=== PATIENT | female | born 2000 | race Caucasian/White ===

== ENCOUNTER 2020-11-28 11:37 | Inpatient (IN) | payer OTHER ==
[2020-11-28] MEDS: LACTATED RINGERS 1,000 ML IV SCH ×2 (12:05→13:00)
[2020-11-28] MEDS ORDERED: TERBUTALINE 1 MG/ML VIAL SQ PRN (12:06)
[2020-11-28] MEDS ORDERED: OXYTOCIN 10 UNIT/ML 1 ML VIAL IM PRN (12:06)
[2020-11-28] MEDS ORDERED: LIDOCAINE 0.5% (PF) 5 MG/ML (50 ML SDV) SQ PRN (12:06)
[2020-11-28] MEDS ORDERED: METHYLERGONOVINE 0.2 MG/ML 1 ML AMP IM PRN (12:06)
[2020-11-28] MEDS ORDERED: CARBOPROST TROMETHAMINE 250 MCG/ML 1 ML AMP IM PRN (12:06)
[2020-11-28] MEDS ORDERED: PENICILLIN G POTASSIUM 5,000,000 UNIT in DEXTROSE 5% IN WATER 100 ML IVPB STA ×2 (12:11)
[2020-11-28 12:42] LABS: Basophils % (A) 0 %; Eosinophils % (A) 0 %; HCT 39.8 % (34.0-46.0); HGB 13.7 gm/dL (11.4-16.0); Lymphocytes # (A) 1.9 k/uL (1.0-4.8); Lymphocytes % (A) 15 %; MCH 32.1 pg (25.0-35.0); MCHC 34.3 g/dL (31.0-37.0); MCV 93.5 fL (80.0-100.0); Mean Platelet Volume 9.5; Monocytes # (A) 0.5 k/uL (0-1.0); Monocytes % (A) 4 %; Neutrophils # (A) 9.8 k/uL (1.3-7.7); Neutrophils % (A) 79 %; Platelet Count 185 k/uL (150-450); RBC 4.26 m/uL (3.80-5.40); RDW 14.4 % (11.5-15.5); WBC 12.4 k/uL (3.8-10.6)
[2020-11-28] MEDS ORDERED: fentaNYL (PF) 50 MCG/ML 5 ML AMP ONE (12:44)
[2020-11-28] MEDS ORDERED: SODIUM CHLORIDE 0.9% 100 ML BAG ONE (12:44)
[2020-11-28] MEDS ORDERED: ROPIVACAINE 5MG/ML 20ML VIAL ONE (12:44)
--- NOTE | 2020-11-28 13:04 | P.HPOB ---
History of Present Illness H&P Date: 11/28/20 Chief Complaint: Strong regular uterine contractions This is a 20-year-old white female 2 para 1001 EDC 12/09/2020 at 38-2/7 weeks' gestation who presents from home with strong regular uterine contractions. She denies fluid leakage or vaginal bleeding. Fetus is been active throughout the . history blood type is O+, rubella status immune. Positive group B strep cultures noted in the urine. Hepatitis B surface antigen, HIV testing, urine culture, gonorrhea and chlamydia cultures all negative. One-hour Glucola 116. Past medical history is significant for depression and anxiety. Past history is negative. Current medications Zofran 4 mg when necessary, Zoloft 200 mg daily, vitamin daily. ALLERGIES none known. Family history significant for diabetes, pancreatic cancer. Obstetric history vaginal delivery 2019, 6 lbs. 9 oz. male , unremarkable. Social history patient is single, boyfriend is present and involved. She denies tobacco smoking, former marijuana smoker, denies other alcohol or drug use. On exam patient is 5 foot 4 inches, 154 pounds, blood pressure 129/82. General physical exam is within normal limits. Chest is clear in all jacobo. Extremities reveal no edema. Cervix is 9 cm dilated, 90% effaced, -1 station, vertex presentation. Artificial amniorrhexis reveals abundant clear fluid. heart rate is consistent with reactive NST. Epidural has been requested and was just placed. Impression: 38-2/7 weeks intrauterine , positive group B strep status, active labor. All signs reassuring. Plan: Epidural has been placed. Close maternal and surveillance. Anticipate normal spontaneous vaginal delivery. Review of Systems Constitutional: Reports as per HPI Past Medical History Past Medical History: No Reported History History of Any Multi-Drug Resistant Organisms: None Reported Past Surgical History: No Surgical Hx Reported Past Anesthesia/Blood Transfusion Reactions: No Reported Reaction Past Psychological History: Anxiety Additional Psychological History / Comment(s): has taken zoloft with preg Smoking Status: Never smoker Past Alcohol Use History: None Reported Past Drug Use History: None Reported - Past Family History Mother Family Medical History: No Reported History Medications and Allergies Home Medications Medication Instructions Recorded Confirmed Type Ferrous Sulfate [Feosol] 325 mg PO DAILY 11/28/20 11/28/20 History Sertraline HCl [Zoloft] 200 mg PO DAILY 11/28/20 11/28/20 History Allergies Allergy/AdvReac Type Severity Reaction Status Date / Time No Known Allergies Allergy Verified 11/28/20 12:05 Exam Vital Signs Temp Pulse Resp BP 11/28/20 12:04 97.8 F 77 16 129/82 Intake and Output 11/27/20 11/28/20 11/28/20 22:59 06:59 14:59 Other: Weight 69.853 kg See dictation under HPI please Results Result Diagrams: 11/28/20 12:05 Abnormal Lab Results - Last 24 Hours (Table) 11/28/20 Range/Units 12:05 WBC 12.4 H (3.8-10.6) k/uL Neutrophils # 9.8 H (1.3-7.7) k/uL Assessment and Plan Assessment: 38-2/7 weeks intrauterine , active spontaneous labor. All signs reassuring. Plan: Continue close maternal and surveillance. Anticipate normal spontaneous vaginal delivery. Time with Patient: Less than 30
[2020-11-28] MEDS ORDERED: HYDROCORTISONE 2.5% RECTAL CREAM 30 GM TUBE RECTAL PRN (13:33)
[2020-11-28] MEDS ORDERED: ZOLPIDEM 5 MG TAB PO PRN (13:33)
[2020-11-28] MEDS ORDERED: diphenhydrAMINE 50 MG/ML 1 ML VIAL IVP PRN ×2 (13:33)
[2020-11-28] MEDS ORDERED: LANOLIN CREAM 5 GM TUBE TOPICAL PRN (13:33)
[2020-11-28] MEDS ORDERED: diphenhydrAMINE 50 MG CAP PO PRN (13:33)
[2020-11-28] MEDS ORDERED: BENZOCAINE/MENTHOL SPRAY 1 GM/SPRAY AEROSOL TOPICAL PRN (13:33)
[2020-11-28] MEDS ORDERED: SIMETHICONE 80 MG CHEWABLE PO PRN (13:33)
[2020-11-28] MEDS ORDERED: diphenhydrAMINE 25 MG CAP PO PRN (13:33)
--- NOTE | 2020-11-28 13:33 | P.PROBDLV ---
Vaginal Delivery Note - . Vaginal Delivery Note: This is a 20-year-old white female 2 para 1001 EDC 12/09/2020 at 38-2/7 weeks' gestation. Patient presented with strong regular uterine contractions from home. remarkable for positive group B strep in the urine. Rubella immune. Blood type O positive. Please see dictated history and physical for details. Penicillin G was given 1 dose. Epidural was placed per her request. She was judged be completely dilated at 1314 hrs. heart rate was reassuring throughout the first and second stages. Perineal body was prepped and draped in usual sterile fashion infant's head delivered occiput anterior and she restituted accordingly. The oropharynx, nasopharynx, and external nares were all bulb suctioned. Patient officially delivered a liveborn female at 1319 hrs. Umbilical cord was doubly clamped and ligated. He was handed to [facility] nurses for evaluation where scores of 9 and 10 at one and 5 minutes respectively were given. Baby weighed 6 pounds 7.2 ounces or 2925 g. Placenta delivered spontaneously, it was inspected and noted to be intact with trivascular cord at 1322 hrs. Bleeding was initially brisk, not improved with uterine massage and Pitocin, therefore Methergine was given 1 IM with excellent and immediate results. Fundus is then firm, midline, symmetric, 16 week size. Careful inspection of the cervix, vagina, perineum, periurethral, and perirectal areas revealed a left labial laceration, first-degree. This was injected with lidocaine and repaired in the usual fashion using repeat. Total estimated blood loss 350 mL's. Patient and her family are allowed to begin the bonding experience in the LDR.
[2020-11-28] MEDS ORDERED: OXYTOCIN 30 UNITS/500 ML NS 30 UNIT in SALINE 1 500ML.BAG IV SCH (14:30)
[2020-11-28] MEDS ORDERED: PENICILLIN G POTASSIUM 2,500,000 UNIT in DEXTROSE 5% IN WATER 100 ML IVPB SCH ×2 (16:30)
[2020-11-28] MEDS: ACETAMINOPHEN TAB 325 MG TAB PO PRN (20:16)
[2020-11-28] MEDS: SENNOSIDES-DOCUSATE SODIUM 1 EACH TAB PO SCH (20:17)
[2020-11-29] MEDS: IBUPROFEN 600 MG TAB PO PRN ×2 (04:06→20:36)
[2020-11-29 04:26] LABS: Basophils % (A) 0 %; Eosinophils # (A) 0.1 k/uL (0-0.7); Eosinophils % (A) 1 %; HGB 12.3 gm/dL (11.4-16.0); Lymphocytes # (A) 1.9 k/uL (1.0-4.8); Lymphocytes % (A) 15 %; MCH 32.2 pg (25.0-35.0); MCHC 34.1 g/dL (31.0-37.0); MCV 94.4 fL (80.0-100.0); Mean Platelet Volume 9.3; Monocytes # (A) 0.6 k/uL (0-1.0); Monocytes % (A) 5 %; Neutrophils # (A) 9.9 k/uL (1.3-7.7); Neutrophils % (A) 78 %; Platelet Count 147 k/uL (150-450); RBC 3.81 m/uL (3.80-5.40); RDW 14.6 % (11.5-15.5); WBC 12.6 k/uL (3.8-10.6)
[2020-11-29] MEDS: LACTATED RINGERS 1,000 ML IV SCH ×2 (06:13→20:35)
--- NOTE | 2020-11-29 07:34 | P.DS ---
Providers Date of admission: 11/28/20 11:51 Expected date of discharge: 11/29/20 Attending physician: Oumou Acharya Primary care physician: Stated None Hospital Course: This is a 20-year-old white female 2 para 1001 EDC 12/09/2020 at 38-2/7 weeks' gestation. Patient presented in active spontaneous labor. is unremarkable, blood type O positive, rubella status immune. Group B strep cultures positive. She did receive penicillin G prior to delivery. Please see dictated delivery note for details. Epidural was placed per her request. She went on to quickly deliver a liveborn female with scores of 9 and 10 at one and 5 minutes respectively. weighed 6 lbs. 7 oz. or 2925 g. The was a small left labial first-degree laceration easily repaired. Estimated blood loss 350 mL's. Please see dictated delivery note for details. This morning the patient is doing well. She is voiding, ambulating, passing flatus without difficulty. Vital signs are stable and she is afebrile. Fundus is firm and in the midline, symmetric and 18 week size. Extremities are negative for edema. Breasts are not engorged. Patient is judged very good condition for discharge home. She will follow-up with me in the office in 6 weeks. I have reminded her no intercourse, tampons or douching. She will use [id number] Advil or Aleve, or Motrin as needed for pain. She will call with any fevers shakes or chills, foul smelling or copious lochia, with the passage of large blood clots, with any pain not alleviated by [id number] products, or indeed with any concerns. She is requesting tubal ligation, we will schedule this at the 6 week visit. Assessment: Well day #1 Patient Condition at Discharge: Good Plan - Discharge Summary Discharge Rx Participant: No New Discharge Prescriptions: No Action Sertraline HCl [Zoloft] 200 mg PO DAILY Ferrous Sulfate [Feosol] 325 mg PO DAILY Discharge Medication List Ferrous Sulfate [Feosol] 325 mg PO DAILY 11/28/20 [History] Sertraline HCl [Zoloft] 200 mg PO DAILY 11/28/20 [History] Follow up Appointment(s)/Referral(s): Oumou Acharya MD [STAFF PHYSICIAN] - 6 Weeks Discharge Disposition: HOME SELF-CARE
[2020-11-29] MEDS: SENNOSIDES-DOCUSATE SODIUM 1 EACH TAB PO SCH ×2 (08:19→20:36)
[2020-11-29] MEDS: ACETAMINOPHEN TAB 325 MG TAB PO PRN (08:19)
[2020-11-29] MEDS ORDERED: SERTRALINE 100 MG TAB PO SCH (09:00)
[2020-11-30 01:21] VITALS: RESP 18
[2020-11-30 07:50] VITALS: BP 131/87; PULSE 75; TEMP 97.5
== END 2020-11-30 13:40 | disposition home or self-care (01) | DRG 807 ==
LOC: FBPOP 11:37 → 4FBP 11:51
PROVIDERS: ADMIT Obstetrics & Gynecology; ATTEND Obstetrics & Gynecology
PROC: 10E0XZZ Delivery of Products of Conception, External Approach (ICD-10-PCS; principal; 2020-11-28)
PROC: 0HQ9XZZ Repair Perineum Skin, External Approach (ICD-10-PCS; 2020-11-28)
DX: O99.824 Streptococcus B carrier state complicating childbirth (principal); Z37.0 Single live birth; O99.344 Other mental disorders complicating childbirth; O70.0 First degree perineal laceration during delivery; F41.9 Anxiety disorder, unspecified; Z3A.38 38 weeks gestation of pregnancy; Z79.899 Other long term (current) drug therapy; Z80.0 Family history of malignant neoplasm of digestive organs; Z83.3 Family history of diabetes mellitus
CPT/HCPCS: 85025; 86850; 86900; 86901

== ENCOUNTER 2021-05-04 13:34 | Emergency (ER) | payer OTHER ==
[2021-05-04 13:39] VITALS: BP 115/78; PULSE 68; RESP 18; TEMP 97.9
--- NOTE | 2021-05-04 14:40 | ED ---
General Adult HPI - General Chief complaint: Psychiatric Symptoms Stated complaint: Mental health eval Time Seen by Provider: 05/04/21 13:41 Source: patient Mode of arrival: ambulatory Limitations: no limitations - History of Present Illness Initial comments: This 21-year-old female with a past medical history depression presents emergency Department with request for psychiatric evaluation. Patient states she has been taking Zoloft 1 year for depression, however when she refilled the last bottle they looked different and she said it was not working right. Patient states last Thursday she stopped taking her Zoloft because it was increasing her anger. She states she did start recently seeing somebody for her mental health and sees a counselor named Jackie, her first actual appointment with Jackie is supposed to be next . Patient states since last Thursday she has had increased anger and did have a thought to walk in front of cars to commit suicide last Thursday, however she had her dad come to pick her up at the store instead. Patient states she was in crisis Center as a child for a week but has not been inpatient as an adult. Patient states her family does have bipolar 1 and 2 disorder along with anxiety and major depressive disorder, however she was just prescribed Zoloft by her RESISTANCE WELDING MACHINE OPERATOR last year and has been not been diagnosed with any other psychiatric disorders. She states she sees Jackie for therapy and starts sessions with her on . Patient denies any current suicidal or homicidal ideations. She denies any visual or auditory hallucinations. Patient denies any chest pain, shortness of breath, abdominal pain, nausea, vomiting, change in vision, change in bowel or bladder, headache, dizziness. - Related Data Home Medications Medication Instructions Recorded Confirmed Ferrous Sulfate [Feosol] 325 mg PO DAILY 11/28/20 11/28/20 Sertraline HCl [Zoloft] 200 mg PO DAILY 11/28/20 11/28/20 Previous Rx's Medication Instructions Recorded LORazepam [Ativan] 1 mg PO HS 3 Days #3 tab 05/04/21 Allergies Allergy/AdvReac Type Severity Reaction Status Date / Time No Known Allergies Allergy Verified 05/04/21 13:39 Review of Systems ROS Statement: Those systems with pertinent positive or pertinent negative responses have been documented in the HPI. ROS Other: All systems not noted in ROS Statement are negative. Past Medical History Past Medical History: No Reported History History of Any Multi-Drug Resistant Organisms: None Reported Past Surgical History: No Surgical Hx Reported Past Anesthesia/Blood Transfusion Reactions: No Reported Reaction Past Psychological History: Anxiety, Depression Smoking Status: Never smoker Past Alcohol Use History: None Reported Past Drug Use History: Marijuana - Past Family History Mother Family Medical History: No Reported History General Exam Limitations: no limitations General appearance: alert, in no apparent distress Head exam: Present: atraumatic, normocephalic Eye exam: Present: normal appearance, PERRL, EOMI Pupils: Present: normal accommodation ENT exam: Present: mucous membranes moist Neck exam: Present: full ROM Respiratory exam: Present: normal lung sounds bilaterally. Absent: respiratory distress, wheezes, rales, rhonchi, stridor Cardiovascular Exam: Present: regular rate, normal rhythm, normal heart sounds. Absent: systolic murmur, diastolic murmur, rubs, gallop, clicks GI/Abdominal exam: Present: soft, normal bowel sounds. Absent: distended, tenderness, guarding, rebound, rigid Extremities exam: Present: full ROM Back exam: Present: full ROM Neurological exam: Present: alert, oriented X3, CN II-XII intact, normal gait Psychiatric exam: Present: normal affect, depressed (She seems upset, crying while in room). Absent: homicidal ideation, suicidal ideation Skin exam: Present: warm, dry, intact, normal color. Absent: rash Course Vital Signs 05/04/21 05/04/21 13:37 15:59 Temperature 97.9 F 97.9 F Pulse Rate 68 68 Respiratory 18 18 Rate Blood Pressure 115/78 115/78 O2 Sat by Pulse 96 96 Oximetry Medical Decision Making - Medical Decision Making This 21-year-old female presents emergency department for psychiatric evaluation. She denies any suicidal or homicidal ideation at this time. Nurse Amber from EPS did speak with patient, her and patient both agreed that she did not need to be admitted as inpatient. Amber did call the [facility] who patient recently began seeing, her counselor is Jackie and will be calling patient on Thursday for an earlier therapy session. Ativan for 3 days was given to patient until she is able to see Jackie on Thursday. Strict return precautions were discussed. Patient verbally stated she will return if she has any thoughts of wanting to hurt herself or anybody else and she states she will return if she has any visual or auditory hallucinations. She advised to follow-up with the primary care provider for medication adjustment. Patient verbally agreed to plan. Patient sent home in stable condition. Case discussed my attending, Dr. Kennedy Disposition Clinical Impression: Encounter for psychiatric assessment, Mood changes Disposition: HOME SELF-CARE Condition: Stable Instructions (If sedation given, give patient instructions): Mood Disorders (ED) Additional Instructions: These return to the emergency department with any new, worsening, or concerning symptoms. Please call your therapist/counselor on Thursday morning when they ope n. Take medication as directed Prescriptions: LORazepam [Ativan] 1 mg PO HS 3 Days #3 tab Is patient prescribed a controlled substance at d/c from ED?: No Referrals: None,Stated [Primary Care Provider] - 1-2 days
== END 2021-05-04 16:04 | disposition home or self-care (01) ==
LOC: EC 13:34
DX: Z04.6 Encounter for general psychiatric examination, requested by authority (principal); F39 Unspecified mood [affective] disorder; F32.A Depression, unspecified; F41.9 Anxiety disorder, unspecified; F12.90 Cannabis use, unspecified, uncomplicated; Z79.899 Other long term (current) drug therapy
CPT/HCPCS: 82075; 99283

== ENCOUNTER → 2021-07-02 | Outpatient (CLI) | payer OTHER | END | disposition home or self-care (01) | LOC: LABWHC1 15:48 | PROVIDERS: ATTEND Physician Assistant | DX: N91.2 Amenorrhea, unspecified (principal) | CPT/HCPCS: 36415; 84702; 86850; 86900; 86901 ==

== ENCOUNTER 2021-07-06 11:44 | Emergency (ER) | payer OTHER ==
[2021-07-06 12:53] LABS: Appearance,Urine Clear (Clear); Bilirubin,Urine Negative (Negative); Blood,Urine Large (Negative); Color,Urine Light Yellow; Glucose,Urine (UA) Negative (Negative); Ketones,Urine Negative (Negative); Leukocyte Esterase,Urine Trace (Negative); Mucus,Urine Rare /hpf; Nitrite,Urine Negative (Negative); PH, Urine 6.5 (5.0-8.0); Protein,Urine Negative (Negative); RBC,Urine 26 /hpf (0-5); Specific Gravity,Urine 1.012 (1.001-1.035); Squamous Epithelial Cell,Urine 1 /hpf (0-4); Urobilinogen,Urine <2.0 mg/dL (<2.0); WBC,Urine 2 /hpf (0-5)
[2021-07-06] MEDS ORDERED: SODIUM CHLORIDE 0.9% 1,000 ML IV STA (13:13)
[2021-07-06 13:48] LABS: Basophils # (A) 0.1 k/uL (0-0.2); Basophils % (A) 1 %; Eosinophils # (A) 0.2 k/uL (0-0.7); Eosinophils % (A) 2 %; HCT 36.5 % (34.0-46.0); HGB 11.8 gm/dL (11.4-16.0); Lymphocytes # (A) 1.5 k/uL (1.0-4.8); Lymphocytes % (A) 21 %; MCH 29.9 pg (25.0-35.0); MCHC 32.4 g/dL (31.0-37.0); MCV 92.2 fL (80.0-100.0); Mean Platelet Volume 8.4; Monocytes # (A) 0.2 k/uL (0-1.0); Monocytes % (A) 4 %; Neutrophils % (A) 72 %; Platelet Count 202 k/uL (150-450); RBC 3.96 m/uL (3.80-5.40); RDW 13.5 % (11.5-15.5)
[2021-07-06 13:58] LABS: African American GFR (CKD) >90 (>60 ml/min/1.73 sqM); Anion Gap 4 mmol/L; Blood Urea Nitrogen 11 mg/dL (7-17); Calcium 8.8 mg/dL (8.4-10.2); Carbon Dioxide 24 mmol/L (22-30); Chloride 108 mmol/L (98-107); Glucose 84 mg/dL (74-99); Non-African American GFR(CKD) >90 (>60 ml/min/1.73 sqM); Potassium 3.6 mmol/L (3.5-5.1); Sodium 136 mmol/L (137-145)
[2021-07-06 14:01] LABS: Partial Thromboplastin Time 25.4 sec (22.0-30.0); Prothrombin Time 11.3 sec (9.0-12.0)
--- NOTE | 2021-07-06 14:26 | US ---
EXAMINATION TYPE: Transabdominal DATE OF EXAM: 07/06/2021 2:10 PM COMPARISON: NONE CLINICAL HISTORY: vaginal bleeding. Bleeding EXAM PERFORMED: Transvaginal (TV) and Transabdominal (TA) EXAM MEASUREMENTS: GESTATIONAL AGE / DATING Physician Established: Not yet established Dates by LMP: (9 weeks/2 days) EDC: 02/06/2022 Dates by First Scan: No previous this is first scan Dates by Current Scan for: ( 6 weeks/0 days) EDC: 03/01/2022 MATERNAL ANATOMY Uterus: 8.0 x 5.8 x 4.5 cm Right Ovary: 3.6 x 2.2 x 1.8 cm Left Ovary: 2.9 x 1.3 x 1.2 cm Post CDS / Adnexa: free fluid, prominent vessels seen bilaterally Presence of corpus luteal cyst: right ovary = 2.0 x 1.8 x 2.0 cm Presence of subchorionic bleed: 1.2 x 1.8 x 0.5 cm GESTATION / SURVEY CRL: Not visualized MSD: 1.2 cm (6 weeks/0 days) Yolk Sac (normal less than 6mm): 3.4 mm Date of LMP: 05/02/2021, Beta HcG (if available): Not available at this time GS and YS visualized. CRL not seen at time of scan. Moderate amount of free fluid seen in pelvis. Prominent vessels seen in bilateral adnexa. IMPRESSION: There is free fluid in the pelvis. Intrauterine gestational sac that corresponds to 6 weeks gestation . Follow-up exam recommended in 14 days to confirm a living fetus. Small subchorionic fluid collection noted measuring 3 mm in thickness.
--- NOTE | 2021-07-06 15:22 | ED ---
General Adult HPI - General Chief complaint: Vaginal Bleeding Stated complaint: early , vaginal bleeding Time Seen by Provider: 07/06/21 12:55 Source: patient, RN notes reviewed, old records reviewed Mode of arrival: ambulatory - History of Present Illness Initial comments: Patient is a 21-year-old female who presents emergency department for concern for vaginal bleeding. She is . LMP was 05/09/2021. States she had a single episode of vaginal bleeding this morning. Has been having intermittent cramping. Believes there may have been clots in it this morning. No bleeding since. No vaginal discharge. No history of STDs. No urinary complaints. Denies any nausea, vomiting, current abdominal pain. His no other acute complaints at this time. No history of miscarriages. Presents over concern for her vaginal bleeding in early . Does have a history of 2 pregnancies without complications. Never required RhoGAM in the past. - Related Data Home Medications Medication Instructions Recorded Confirmed Ferrous Sulfate [Feosol] 325 mg PO DAILY 11/28/20 11/28/20 Sertraline HCl [Zoloft] 200 mg PO DAILY 11/28/20 11/28/20 Previous Rx's Medication Instructions Recorded LORazepam [Ativan] 1 mg PO HS 3 Days #3 tab 05/04/21 Pnv No.95/Ferrous Fum/Folic AC 1 each PO DAILY 30 Days #30 tablet 07/06/21 [ Multivitamin Tablet] Allergies Allergy/AdvReac Type Severity Reaction Status Date / Time No Known Allergies Allergy Verified 05/04/21 13:39 Review of Systems ROS Statement: Those systems with pertinent positive or pertinent negative responses have been documented in the HPI. Review of Systems: CONST: Denies fever EYES: Denies blurry vision ENT: Denies nasal congestion C/V: Denies Chest pain RESP: Denies shortness of breath GI: Denies abdominal pain : Denies dysuria SKIN: Denies rash. MSK: Denies joint pain. NEURO: Denies headache ROS Other: All systems not noted in ROS Statement are negative. Past Medical History Past Medical History: No Reported History History of Any Multi-Drug Resistant Organisms: None Reported Past Surgical History: No Surgical Hx Reported Past Anesthesia/Blood Transfusion Reactions: No Reported Reaction Past Psychological History: Anxiety, Depression Smoking Status: Never smoker Past Alcohol Use History: Rare Past Drug Use History: Marijuana - Past Family History Mother Family Medical History: No Reported History General Exam - General Exam Comments Initial Comments: General: Appears in no acute distress. HEAD: Normal with no signs of head trauma. EYES: PERRLA, EOMI, conjunctiva normal, no discharge. ENT: Hearing grossly intact, normal oropharynx. RESPIRATORY: Clear breath sounds bilaterally. No wheezes, rales, or rhonchi. C/V: Regular rate and rhythm. S1 and S2 auscultated, no edema, peripheral pulses 2+ and intact throughout ABD: Abd is soft, nontender, nondistended EXT: Normal range of motion, no obvious deformity SKIN: No rashes or lesions observed on exposed skin. NEURO: Alert and oriented 4. Course Vital Signs 07/06/21 07/06/21 07/06/21 12:00 14:30 15:57 Temperature 97.8 F 98.0 F 97.6 F Pulse Rate 72 78 72 Respiratory 18 20 20 Rate Blood Pressure 114/63 116/72 118/80 O2 Sat by Pulse 100 98 98 Oximetry Medical Decision Making - Medical Decision Making Based on the patient's presentation and physical exam, I'm concerned for threatened miscarriage. She is not yet received an ultrasound. Believe she is approximately 6-8 weeks . We'll obtain basic labs, type and screen, quantitative beta hCG, urine studies as well as an ultrasound. She was in agre ement this plan. She'll be given a 1 L fluid bolus. Refuses analgesia medications at this time. Patient's laboratory studies are remarkable for a hemoglobin within normal limits. Quantitative beta hCG is 20,000. Urinalysis shows blood but no signs of acute infection. Remainder the labs are unremarkable. Type and screen is O+. Patient's ultrasound reveals mild amount of free fluid in the pelvis, as well as an intrauterine gestational sac approximate 6 weeks gestation. They recommend follow-up exam in 14 days to confirm a living fetus. There is also small subchorionic fluid collection which could be hemorrhage. On reevaluation, I discussed the findings with the patient. She expressed understanding. I recommended follow-up ultrasound and beta hCG testing in the next 2 weeks. She can return to the emergency department for any urgent evaluation or changes in symptoms. She will monitor for signs of worsening bleeding. She does have an PRESCHOOL SUBSTITUTE TEACHER appointment already scheduled for 2 weeks from now. She'll be given a prescription for vitamins. We discussed her diagnosis, threatened miscarriage. She was in agreement this plan. I will provide the patient with a prescription for vitamins. I instructed the patient to follow up with their PCP in the next 3 days. I provided contact information for follow up with PRESCHOOL SUBSTITUTE TEACHER. I explained that the patient should return to the emergency department if they experience any worsening symptoms. Strict return precautions were discussed with the patient. The patient expressed understanding of these instructions. I answered all questions that the patient had. The patient was discharged home in good Conditi on with their prescriptions and follow up information. - Lab Data Result diagrams: 07/06/21 13:35 07/06/21 13:35 Lab Results 07/06/21 07/06/21 07/06/21 Range/Units 12:36 12:36 13:35 WBC 7.0 (3.8-10.6) k/uL RBC 3.96 (3.80-5.40) m/uL Hgb 11.8 (11.4-16.0) gm/dL Hct 36.5 (34.0-46.0) % MCV 92.2 (80.0-100.0) fL MCH 29.9 (25.0-35.0) pg MCHC 32.4 (31.0-37.0) g/dL RDW 13.5 (11.5-15.5) % Plt Count 202 (150-450) k/uL MPV 8.4 Neutrophils % 72 % Lymphocytes % 21 % Monocytes % 4 % Eosinophils % 2 % Basophils % 1 % Neutrophils # 5.0 (1.3-7.7) k/uL Lymphocytes # 1.5 (1.0-4.8) k/uL Monocytes # 0.2 (0-1.0) k/uL Eosinophils # 0.2 (0-0.7) k/uL Basophils # 0.1 (0-0.2) k/uL PT (9.0-12.0) sec INR (<1.2) APTT (22.0-30.0) sec Sodium (137-145) mmol/L Potassium (3.5-5.1) mmol/L Chloride (98-107) mmol/L Carbon Dioxide (22-30) mmol/L Anion Gap mmol/L BUN (7-17) mg/dL Creatinine (0.52-1.04) mg/dL Est GFR (CKD-EPI)AfAm (>60 ml/min/1.73 sqM) Est GFR (CKD-EPI)NonAf (>60 ml/min/1.73 sqM) Glucose (74-99) mg/dL Calcium (8.4-10.2) mg/dL HCG, Quant mIU/mL Urine Color Light Yellow Urine Appearance Clear (Clear) Urine pH 6.5 (5.0-8.0) Ur Specific [place] 1.012 (1.001-1.035) Urine Protein Negative (Negative) Urine Glucose (UA) Negative (Negative) Urine Ketones Negative (Negative) Urine Blood Large H (Negative) Urine Nitrite Negative (Negative) Urine Bilirubin Negative (Negative) Urine Urobilinogen <2.0 (<2.0) mg/dL Ur Leukocyte Esterase Trace H (Negative) Urine RBC 26 H (0-5) /hpf Urine WBC 2 (0-5) /hpf Ur Squamous Epith Cells 1 (0-4) /hpf Urine Mucus Rare H (None) /hpf Urine HCG, Qual Detected (Not Detectd) Blood Type Blood Type Recheck Bld Type Recheck Status Antibody Screen Spec Expiration Date 07/06/21 07/06/21 07/06/21 Range/Units 13:35 13:35 13:35 WBC (3.8-10.6) k/uL RBC (3.80-5.40) m/uL Hgb (11.4-16.0) gm/dL Hct (34.0-46.0) % MCV (80.0-100.0) fL MCH (25.0-35.0) pg MCHC (31.0-37.0) g/dL RDW (11.5-15.5) % Plt Count (150-450) k/uL MPV Neutrophils % % Lymphocytes % % Monocytes % % Eosinophils % % Basophils % % Neutrophils # (1.3-7.7) k/uL Lymphocytes # (1.0-4.8) k/uL Monocytes # (0-1.0) k/uL Eosinophils # (0-0.7) k/uL Basophils # (0-0.2) k/uL PT 11.3 (9.0-12.0) sec INR 1.0 (<1.2) APTT 25.4 (22.0-30.0) sec Sodium 136 L (137-145) mmol/L Potassium 3.6 (3.5-5.1) mmol/L Chloride 108 H (98-107) mmol/L Carbon Dioxide 24 (22-30) mmol/L Anion Gap 4 mmol/L BUN 11 (7-17) mg/dL Creatinine 0.65 (0.52-1.04) mg/dL Est GFR (CKD-EPI)AfAm >90 (>60 ml/min/1.73 sqM) Est GFR (CKD-EPI)NonAf >90 (>60 ml/min/1.73 sqM) Glucose 84 (74-99) mg/dL Calcium 8.8 (8.4-10.2) mg/dL HCG, Quant 54664.0 mIU/mL Urine Color Urine Appearance (Clear) Urine pH (5.0-8.0) Ur Specific [place] (1.001-1.035) Urine Protein (Negative) Urine Glucose (UA) (Negative) Urine Ketones (Negative) Urine Blood (Negative) Urine Nitrite (Negative) Urine Bilirubin (Negative) Urine Urobilinogen (<2.0) mg/dL Ur Leukocyte Esterase (Negative) Urine RBC (0-5) /hpf Urine WBC (0-5) /hpf Ur Squamous Epith Cells (0-4) /hpf Urine Mucus (None) /hpf Urine HCG, Qual (Not Detectd) Blood Type O Positive Blood Type Recheck O Pos Bld Type Recheck Status No Antibody Screen NEGATIVE Spec Expiration Date 07/09/20212334 Disposition Clinical Impression: Threatened Disposition: HOME SELF-CARE Condition: Good Instructions (If sedation given, give patient instructions): Threatened Miscarriage (ED), Dysmenorrhea (ED) Prescriptions: Pnv No.95/Ferrous Fum/Folic AC [ Multivitamin Tablet] 1 each PO DAILY 30 Days #30 tablet Is patient prescribed a controlled substance at d/c from ED?: No Referrals: None,Stated [Primary Care Provider] - 1-2 days Shiela James DO [Doctor of Osteopathic Medicine] - 1-2 days Time of Disposition: 15:15
[2021-07-06 15:57] VITALS: RESP 20
[2021-07-06 15:58] VITALS: BP 118/80; PULSE 72; TEMP 97.6
== END 2021-07-06 15:30 | disposition home or self-care (01) ==
LOC: EC 11:44
DX: O20.0 Threatened abortion (principal); O99.341 Other mental disorders complicating pregnancy, first trimester; F32.A Depression, unspecified; F41.9 Anxiety disorder, unspecified; O99.321 Drug use complicating pregnancy, first trimester; F12.90 Cannabis use, unspecified, uncomplicated; Z79.899 Other long term (current) drug therapy; Z3A.01 Less than 8 weeks gestation of pregnancy
CPT/HCPCS: 36415; 76801; 76817; 80048; 81001; 81025; 84702; 85025; 85610; 85730; 86850; 86900; 86901; 96360; 99284